=== PATIENT | male | born 1970 | race Caucasian/White ===

== ENCOUNTER 2017-05-19 13:28 | Outpatient (CLI) | payer OTHER ==
[2017-05-19] MEDS ORDERED: BARIUM SULFATE 135 ML SUSP.RECON (E-Z-HD) PO ONE (13:49)
== END 2017-05-19 15:52 | disposition home or self-care (01) ==
LOC: SRD 13:28
DX: R13.10 Dysphagia, unspecified (principal); G80.8 Other cerebral palsy
CPT/HCPCS: 74230; 92611; G8996; G8997; G8998